=== PATIENT | female | born 1985 | race Two or more races ===

== ENCOUNTER 2023-01-16 00:57 | Inpatient (IN) | payer OTHER ==
[~2023-01-16] VITALS: Ht 165.1 cm; Wt 97.1 kg
[2023-01-16] MEDS ORDERED: LEVOTHYROXINE25 MCG PO (01:57)
[2023-01-16] MEDS ORDERED: PRENATAL TABLE1 EAC6 PO (01:57)
== END 2023-01-17 09:26 | disposition home or self-care (01) | DRG 819 ==
LOC: LDR 00:57 → OB/GYN 13:48
PROVIDERS: ADMIT Obstetrics & Gynecology; ATTEND Obstetrics & Gynecology
PROC: 0UVC7ZZ Restriction of Cervix, Via Natural or Artificial Opening (ICD-10-PCS; principal; 2023-01-16 21:15)
DX: O34.32 Maternal care for cervical incompetence, second trimester (principal); Z3A.19 19 weeks gestation of pregnancy; Z20.822 Contact with and (suspected) exposure to COVID-19

== ENCOUNTER 2023-03-26 10:16 | Outpatient (CLI) | payer OTHER ==
[~2023-03-26 10:16] MED LIST: LEVOTHYROXINE25 MCG PO; PRENATAL TABLE1 EAC6 PO
== END 2023-03-26 12:07 | disposition home or self-care (01) ==
LOC: NST 10:16
PROVIDERS: ATTEND Obstetrics & Gynecology Maternal & Fetal Medicine
DX: Z34.83 Encounter for supervision of other normal pregnancy, third trimester (principal)

== ENCOUNTER 2023-04-10 11:12 | Outpatient (CLI) | payer OTHER | END 2023-04-10 12:13 | disposition home or self-care (01) | LOC: NST 11:12 | PROVIDERS: ATTEND Obstetrics & Gynecology Maternal & Fetal Medicine | DX: Z34.83 Encounter for supervision of other normal pregnancy, third trimester (principal) ==

== ENCOUNTER 2023-04-24 14:25 | Outpatient (CLI) | payer OTHER | END 2023-04-24 15:28 | disposition home or self-care (01) | LOC: NST 14:25 | PROVIDERS: ATTEND Obstetrics & Gynecology Maternal & Fetal Medicine | DX: Z34.83 Encounter for supervision of other normal pregnancy, third trimester (principal) ==

== ENCOUNTER 2023-04-26 13:29 | Inpatient (IN) | payer OTHER ==
[~2023-04-26] VITALS: Ht 165.1 cm; Wt 104.3 kg
== END 2023-04-28 12:28 | disposition home or self-care (01) | DRG 833 ==
LOC: NST 13:29 → LDR 14:44
PROVIDERS: ADMIT Obstetrics & Gynecology Gynecology; ATTEND Obstetrics & Gynecology Gynecology
PROC: 4A1HXCZ Monitoring of Products of Conception, Cardiac Rate, External Approach (ICD-10-PCS; principal; 2023-04-26)
DX: O60.03 Preterm labor without delivery, third trimester (principal); Z3A.33 33 weeks gestation of pregnancy; Z20.822 Contact with and (suspected) exposure to COVID-19

== ENCOUNTER 2023-12-03 10:06 | Emergency (ER) | payer OTHER ==
[~2023-12-03] VITALS: Ht 165.1 cm; Wt 88.5 kg
[2023-12-03] MEDS ORDERED: DEXAMETHASONE SODIUM PHOSPHATE 4 MG/ML VIAL IM STA (11:01)
[2023-12-03] MEDS ORDERED: ORPHENADRINE CITRATE 100 MG TABLET PO STA (11:01)
[2023-12-03] MEDS ORDERED: CYCLOBENZAPRINE10 MG PO (11:09)
[2023-12-03] MEDS ORDERED: NABUMETONE500 MG PO (11:09)
[2023-12-03] MEDS ORDERED: KETOROLAC TROMETHAMINE 30 MG VIAL IM ONE (11:15)
== END 2023-12-03 11:33 | disposition home or self-care (01) ==
LOC: ER 10:06
DX: M54.9 Dorsalgia, unspecified (principal); E03.9 Hypothyroidism, unspecified